=== PATIENT | male | born 1990 | race African-American/Black ===

== ENCOUNTER 2016-04-16 16:19 | Inpatient (IN) | payer SELFPAY ==
[~2016-04-16] VITALS: Ht 170.2 cm; Wt 79.7 kg
[~2016-04-16 16:19] MED LIST: HYDR-3965 PO; IBUP-1547 PO
[2016-04-16] MEDS ORDERED: HALOPERIDOL LACTATE 5 MG/ML VIAL IM ONE (16:30)
[2016-04-16] MEDS ORDERED: LORazepam 2 MG/ML VIAL IM ONE (16:30)
[2016-04-16] MEDS ORDERED: DiphenhydrAMINE HCL 50 MG/ML VIAL IM ONE (16:30)
[2016-04-16 17:04] LABS: BASOPHILS # (AUTO) 0.01 K/uL (0.00-0.20); BASOPHILS % (AUTO) 0.1 % (0.0-2.0); EOSINOPHILS # (AUTO) 0.02 K/uL (0.00-0.70); HEMATOCRIT 45.8 % (41-53); LYMPHOCYTES # (AUTO) 0.8 K/uL (1.0-4.8); LYMPHOCYTES % (AUTO) 8.3 % (22.0-44.0); MEAN CORPUSCULAR HGB CONC 32.7 G/dL (31.0-37.0); MEAN CORPUSCULAR VOLUME 92 fL (80-100); MONOCYTES # (AUTO) 0.7 K/uL (0.1-1.0); MONOCYTES % (AUTO) 6.5 % (2.0-9.0); NEUTROPHILS # (AUTO) 8.7 K/uL (1.8-7.7); NEUTROPHILS % (AUTO) 84.9 % (40.0-70.0); PLATELET COUNT (AUTO) 211 K/uL (150-450); RED BLOOD CELL COUNT(AUTO) 4.99 MIL/uL (4.50-5.90); RED CELL DISTRIBUTION WIDTH 13.7 % (11.5-14.5); WHITE BLOOD COUNT (AUTO) 10.2 K/uL (4.5-11.0)
[2016-04-16 17:13] LABS: ANION GAP 10 mmol/L (8-16); CALCIUM, TOTAL 9.2 mg/dL (8.8-10.5); CARBON DIOXIDE 27 mmol/L (22-29); CHLORIDE 102 mmol/L (98-107); CREATININE 1.53 mg/dL (0.60-1.30); GLOMERULAR FILTR. RATE CALC > 60 mL/min (>60); POTASSIUM 4.1 mmol/L (3.5-5.1); SODIUM SERUM 139 mmol/L (136-145); UREA NITROGEN, BLOOD 12 mg/dL (7-18)
[2016-04-16 17:32] LABS: ALANINE AMINOTRANSFERASE 61 U/L (12-78); ASPARTATE AMINOTRANSFERASE 77 U/L (15-37); BILIRUBIN,TOTAL 1.7 mg/dL (0.1-1.0); TOTAL PROTEIN, SERUM 7.5 g/dL (6.4-8.2)
[2016-04-16 17:51] LABS: RBC MORPHOLOGY COMMENT NORMAL RBC MORPH
[2016-04-16] MEDS ORDERED: ZOLPIDEM TARTRATE 10 MG TABLET PO PRN (18:30)
[2016-04-16] MEDS ORDERED: ACETAMINOPHEN 500 MG TABLET PO ONE (21:15)
[2016-04-17] MEDS ORDERED: HALOPERIDOL LACTATE 5 MG/ML VIAL IM ONE (09:00)
[2016-04-17] MEDS: OLANZapine 5 MG RAPDIS TABLET PO SCH ×2 (09:00→17:00)
[2016-04-17] MEDS ORDERED: LORazepam 2 MG/ML VIAL IM ONE (09:00)
[2016-04-17] MEDS ORDERED: DiphenhydrAMINE HCL 50 MG/ML VIAL IM ONE (09:00)
[2016-04-18] MEDS ORDERED: DiphenhydrAMINE HCL 50 MG/ML VIAL IM ONE (01:30)
[2016-04-18] MEDS ORDERED: LORazepam 2 MG/ML VIAL IM ONE (01:30)
[2016-04-18] MEDS ORDERED: HALOPERIDOL LACTATE 5 MG/ML VIAL IM ONE (01:30)
[2016-04-18] MEDS: HALOPERIDOL 5 MG TABLET PO PRN ×2 (01:43→16:13)
[2016-04-18] MEDS: LORazepam 2 MG TABLET PO PRN ×2 (01:43→16:13)
[2016-04-18] MEDS: OLANZapine 5 MG RAPDIS TABLET PO SCH ×2 (09:00→17:13)
[2016-04-18 09:18] VITALS: BP 125/72
[2016-04-18 16:25] VITALS: BP 124/71
[2016-04-19] MEDS: OLANZapine 5 MG RAPDIS TABLET PO SCH ×2 (07:49→16:57)
[2016-04-19] MEDS: LORazepam 2 MG TABLET PO PRN ×2 (07:49→14:33)
[2016-04-19] MEDS: HALOPERIDOL 5 MG TABLET PO PRN ×2 (07:49→14:33)
[2016-04-19] MEDS ORDERED: OLAN5TAB5 PO (17:17)
== END 2016-04-19 18:50 | disposition home or self-care (01) | DRG 885 ==
LOC: EMS 16:20 → EEVIPCON 16:20 → 3EC 23:06
PROVIDERS: ADMIT Psychiatry & Neurology Child & Adolescent Psychiatry; ATTEND Psychiatry & Neurology Child & Adolescent Psychiatry
DX: F29 Unspecified psychosis not due to a substance or known physiological condition (principal); R45.851 Suicidal ideations; S00.511A Abrasion of lip, initial encounter; F41.9 Anxiety disorder, unspecified; R74.0 Nonspecific elevation of levels of transaminase and lactic acid dehydrogenase [LDH]; E80.6 Other disorders of bilirubin metabolism; F12.90 Cannabis use, unspecified, uncomplicated; Z88.1 Allergy status to other antibiotic agents; Z78.1 Physical restraint status; X58.XXXA Exposure to other specified factors, initial encounter; Y93.89 Activity, other specified; Y92.89 Other specified places as the place of occurrence of the external cause; Y99.8 Other external cause status
CPT/HCPCS: 96372; 99285; G0480; J1200; J1630; J2060